=== PATIENT | female | born 1995 | race Caucasian/White ===

== ENCOUNTER 2016-10-27 15:26 | Emergency (ER) | payer BC, OTHER ==
[2016-10-27 15:39] VITALS: BP 134/80; PULSE 88
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
--- NOTE | 2016-10-27 16:21 | XRAY ---
Indication: Neck, left shoulder, and arm pain. Comparison: None 3 views of the cervical spine demonstrates lordotic reversal, positional versus paraspinal muscular spasm. No other bony, articular, or soft tissue abnormalities.
[2016-10-27] MEDS ORDERED: TORAdol 30 mg Injection IM ONE (16:35)
[2016-10-27] MEDS ORDERED: TORAdol 30 mg Injection ONE (16:38)
== END 2016-10-27 16:57 | disposition home or self-care (01) ==
LOC: ED 15:26
DX: M62.838 Other muscle spasm (principal); M54.2 Cervicalgia; V47 Car occupant injured in collision with fixed or stationary object
CPT/HCPCS: 72040; 96372; 99283; J1885

== ENCOUNTER 2017-01-23 19:42 | Emergency (ER) | payer BC, OTHER ==
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
[2017-01-23 21:20] VITALS: BP 150/59; PULSE 72; O2SAT 96
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
== END 2017-01-23 21:25 | disposition home or self-care (01) ==
LOC: ED 19:42
DX: S16.1XXA Strain of muscle, fascia and tendon at neck level, initial encounter (principal); R51 Headache; V43.51XA Car driver injured in collision with sport utility vehicle in traffic accident, initial encounter
CPT/HCPCS: 70450; 72125; 99284; L0120

== ENCOUNTER 2020-11-05 09:20 | Day surgery (SDC) | payer OTHER ==
[2020-11-05] MEDS ORDERED: Decadron 4 MG INJ IV ONE (09:21)
[2020-11-05] MEDS ORDERED: LIDOCAINE HCL 2% 100 MG/5 ML IJ ONE (09:21)
[2020-11-05] MEDS ORDERED: Versed 2 MG/2 ML Injection ONE (10:34)
[2020-11-05] MEDS ORDERED: DIPRIVAN 200 MG/20 ML IV ONE ×2 (10:34→10:49)
[2020-11-05] MEDS ORDERED: Ketamine HCl 50 MG/ML ONE (10:34)
--- NOTE | 2020-11-05 12:22 | XRAY ---
Indication: Right C2-C4 MBB. Intraoperative fluoroscopy was provided for 20 seconds. 2 digital spot images submitted for interpretation demonstrates posterior needle tips projecting over the expected right C2-C4 nerve roots. Correlate with intraoperative findings/report.
--- NOTE | 2020-11-05 12:28 | XRAY ---
20 seconds of fluoroscopy was used in surgery for a right C2-C3 and C3-C4 MBB.
[2020-11-05] MEDS ORDERED: Lactated Ringers 1,000 ML IV ONE (15:53)
== END 2020-11-05 11:12 | disposition home or self-care (01) ==
LOC: SDC-PAIN 09:20
PROVIDERS: ATTEND Psychiatry & Neurology Pain Medicine
DX: M47.812 Spondylosis without myelopathy or radiculopathy, cervical region (principal); I10 Essential (primary) hypertension; F41.8 Other specified anxiety disorders; Z79.899 Other long term (current) drug therapy; M40.50 Lordosis, unspecified, site unspecified
CPT/HCPCS: 64490; 64491; 72020; 77002; 84703; J1100; J2250; J2704

== ENCOUNTER 2023-03-01 16:39 | Emergency (ER) | payer OTHER ==
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
[2023-03-01 17:08] VITALS: O2SAT 100
[2023-03-01 17:44] LABS: Appearance Clear (Clear); Bacteria None Seen /HPF (None Seen); Bilirubin Negative (Negative); Blood Moderate (Negative); Glucose, Urine Negative (Negative); Hyaline Casts NONE SEEN /LPF (0-2); Ketones Negative (Negative); Leukocyte Esterase Negative (Negative); Nitrite Negative (Negative); Protein,Urine Dip Negative (Negative); RBC 0-2 /HPF (0-5); Specific Gravity <=1.005 (1.005-1.030); Urobilinogen 0.2 mg/dL (0.2); WBC 0-2 /HPF (0-5)
[2023-03-01 17:45] LABS: ADD URINE CULTURE? NO (NO); Epithelial Cells Rare /HPF (None Seen)
[2023-03-01 17:48] VITALS: BP 133/87; PULSE 101
[2023-03-01 17:55] LABS: Absolute Neutrophil Ct (ANC) 3.87 x10^3/uL (1.4-6.9); BASOPHIL % 0.5 % (0.0-0.4); Basophil (Absolute #) 0.03 x10^3/uL (0-0.4); Eosinophil % 1.1 % (0.00-5.0); Eosinophil (Absolute #) 0.07 x10^3/uL (0-0.5); Hematocrit 40.5 % (35-47); IMMATURE GRAN # 0.03 x10^3u/L (0.00-0.03); IMMATURE GRAN % 0.5 % (0.00-0.4); Lymphocyte (Absolute #) 1.46 x10^3/uL (1.0-4.6); Lymphocytes % 23.2 % (24.0-44.0); Mean Cell Volume 92.3 fL (78-100); Mean Corpuscular Hemoglobin 29.6 pg (26-32); Mean Corpuscular Hgb Concent. 32.1 g/dL (32-36); Mean Platelet Volume 11.5 fL (7.5-11.0); Monocyte (Absolute #) 0.84 x10^3/uL (0.0-1.3); Monocytes % 13.3 % (0.0-12.0); Neutrophil % 61.4 % (36.0-66.0); Platelet Count 172 x10^3/uL (150-450); Red Blood Count 4.39 x10^6/uL (4.1-5.4); Red Cell Distribution Width 14.4 % (11.5-14.0); White Blood Count 6.3 x10^3/uL (4.0-10.5)
[2023-03-01 18:35] LABS: ALBUMIN 4.5 g/dL (3.5-5.0); ALKALINE PHOSPHATASE 57 U/L (38-126); ANION GAP 10.4 MEQ/L (5-15); BLOOD UREA NITROGEN 12 mg/dL (7-17); CHLORIDE 101 mmol/L (98-107); Calcium 9.5 mg/dL (8.4-10.2); Carbon Dioxide 32 mmol/L (22-30); Creatinine 1 0.69 mg/dL (0.52-1.04); EST GLOMERULAR FILTRATION RATE > 60.0 ML/MIN; Glucose 68 mg/dL (74-106); HCG, Quantitative (Inhouse) 964.38 mIU/ml; Potassium 4.1 mmol/L (3.5-5.1); SGOT/AST 39 U/L (14-36); SGPT/ALT 40 U/L (0-35); SODIUM 139 mmol/L (137-145); Total Protein 8.1 g/dL (6.3-8.2)
--- NOTE | 2023-03-02 08:43 | XRAY ---
Indication: Bleeding. Two-dimensional transvaginal early OB ultrasound performed. Comparison: None Uterus anteverted with single intrauterine gestational sac measuring 0.70 cm corresponding to 6 weeks 4 days. Single pole with heart rate 111 bpm. No subchorionic hemorrhage. Left and right ovaries are sonographically unremarkable. No suspicious adnexal mass or free fluid. Impression: Single viable intrauterine measuring 6 weeks 4 days. Expected date confinement October 21, 2023. Nothing acute. Comment: Preliminary report was given.
== END 2023-03-01 18:48 | disposition home or self-care (01) ==
LOC: ED 16:39
DX: O20.9 Hemorrhage in early pregnancy, unspecified (principal); Z3A.01 Less than 8 weeks gestation of pregnancy; R10.2 Pelvic and perineal pain; Z79.899 Other long term (current) drug therapy
CPT/HCPCS: 36415; 76801; 80053; 81001; 84702; 85025; 99283